=== PATIENT | female | born 1945 | race African-American/Black ===

== ENCOUNTER 2025-01-27 13:31 | Emergency (ER) | payer BC, OTHER ==
[~2025-01-27] VITALS: Ht 167.6 cm; Wt 64.0 kg
[2025-01-27 13:34] VITALS: O2SAT 96
[2025-01-27] MEDS: SODIUM CHLORIDE 0.9% 1,000 ML IV ONE (14:11)
[2025-01-27 14:16] LABS: BASOPHILS % 0.6 % (0.0-2.0); EOSINOPHILS % 0.9 % (0.0-5.0); HEMATOCRIT. 32.8 % (36.0-48.0); HEMOGLOBIN. 10.5 g/dL (12.0-16.0); LYMPHOCYTES % 19.7 % (20.0-50.0); MEAN PLATELET VOLUME 7.9 fl (7.4-10.4); MONOCYTES % 8.5 % (2.0-8.0); NEUTROPHILS % 70.3 % (40.0-76.0); PLATELET 173 x1000/uL (130-400); RED BLOOD CELL COUNT 3.64 mill/uL (4.2-5.4); RED CELL DISTRIBUTION WIDTH 15.0 % (11.6-14.6)
[2025-01-27 14:33] LABS: CREATININE 1.3 mg/dL (0.6-1.0); UREA NITROGEN BLOOD 18 mg/dL (9-23)
[2025-01-27 14:35] LABS: ASPARTATE AMINOTRANSFERASE 21 IU/L (<34); BILIRUBIN DIRECT 0.3 mg/dL (<=3.0); BILIRUBIN TOTAL 0.8 mg/dL (0.1-1.0); PROTEIN TOTAL 6.5 g/dL (6.0-8.3)
[2025-01-27 15:45] VITALS: BP 130/47; PULSE 60; RESP 11; TEMP 37; O2SAT 97
== END 2025-01-27 18:13 | disposition home or self-care (01) ==
LOC: ER 13:31
DX: R55 Syncope and collapse (principal); R42 Dizziness and giddiness; E11.9 Type 2 diabetes mellitus without complications; I10 Essential (primary) hypertension
CPT/HCPCS: 99284; 96360; 80076; 80048; 85025; 36415; 93005; J7030; A4606